=== PATIENT | female | born 1945 | race Caucasian/White ===

== ENCOUNTER 2024-01-11 09:56 | Inpatient (IN) | payer OTHER, SELFPAY ==
[2024-01-03 12:46] VITALS: BMI 21.5
[2024-01-03 13:58] LABS: Hematocrit 36.8 % (37.0-47.0); Hemoglobin 12.6 g/dL (12.0-16.0); Mean Corp Hgb Conc. 34.2 g/dL (33.0-37.0); Mean Corpuscular Hgb 29.6 pg (27.0-31.0); Mean Corpuscular Volume 86.4 fL (81.0-99.0); Mean Platelet Volume 9.2 fL (7.4-10.4); Platelet Count 421 10^3/uL (130-400); Red Blood Cell Count 4.26 10^6/uL (4.20-5.40); Red Cell Dist. Width 14.6 % (11.5-14.5); White Blood Cell Count 8.6 10^3/uL (4.8-10.8)
[2024-01-03 14:19] LABS: ALT (SGPT) 19 U/L (0-35); Albumin 4.7 g/dl (3.5-5.0); Alkaline Phosphatase 93 U/L (38-126); Blood Urea Nitrogen 42 mg/dl (7-17); Calcium 10.5 mg/dl (8.4-10.2); Carbon Dioxide 18 mmol/L (22-30); Estimated Creatinine Clearance 43 ml/min; Potassium 4.8 mmol/L (3.5-5.1); Sodium 138 mmol/L (135-145); Total Bilirubin 0.5 mg/dl (0.2-1.3); Total Protein 7.9 g/dl (6.3-8.2); eGFR > 60.00
[2024-01-03 14:21] LABS: AST (SGOT) 25 U/L (14-36); Glucose 99 mg/dl (70-99)
[2024-01-03 14:46] LABS: Chloride 109 mmol/L (98-107)
[2024-01-04 09:08] LABS: Glycohemoglobin (HgbA1c) 5.5 % (4.0-5.6)
[2024-01-04 10:22] VITALS: BMI 21.5
--- NOTE | 2024-01-06 10:39 | VNURNOTE ---
Extremely long discussion with patient over the phone, difficult to keep patient on track. Patient Ms Susanna explained she has a sister who can provide very limited help, she has vision problems. The patient intends on using a ride service to get
back home post op. She has a rolling walker, single point cane and sister will provide a raised toilet seat/commode. Home Health Liaison discussed VN nurse/therapy, visits, schedule and homebound status. Patient is planning on going to [facility]
outpatient PT. She has contacted them and is waiting for call back. VN remains available if discharge plans change. [facility]
--- NOTE | 2024-01-10 09:32 | VNURNOTE ---
Notified Maria at [facility] regarding pending [facility] out[facility] PT acceptance, requested Rx. She will forward to med team.
[2024-01-11] VITALS (12 sets, daily range): BP systolic 119–174; BP diastolic 60–88; PULSE 61–64; O2SAT 95–97; BMI 21.5
--- NOTE | 2024-01-11 08:20 | W.DS.TRANS ---
DC Summary - Purchasing Expeditor
-
Discharge Instructions:
Sleep Apnea Risk Low
Discharge Diagnosis/Procedures Allen Huertas 01/11/24
Diet As tolerated
Activity With Walker
Driving Restrictions No driving
Bathing Restrictions OK to Shower
Instructions:
Stand-Alone Forms:
Changes to Home Medications: Yes
Discharge Medications:
DC Medications w/original date entered in [facility]
Calcium Citrate + D 2 tab PO BID 01/03/24
alendronate 70 mg tablet 70 mg PO QWEEK 01/03/24
bimatoprost 0.01 % eye drops (Lumigan) 1 drp ophthalmic (eye) DAILY 01/03/24
multivitamin 1 tab PO DAILY 01/03/24
acetaminophen 500 mg tablet 1,000 mg (2 x 500 mg) PO QID #0 tabs 01/11/24
aspirin 325 mg tablet 325 mg PO DAILY blood clot prevention #1 tab 01/11/24
celecoxib 200 mg capsule 200 mg PO DAILY anti-inflammatory #14 caps 01/11/24
dexamethasone 4 mg tablet 4 mg PO BID inflammation #6 tabs 01/11/24
docusate sodium 100 mg capsule (Colace) 100 mg PO BID stool softner #1 cap 01/11/24
famotidine 10 mg tablet 10 mg PO HS GERD #0 tabs 01/11/24
magnesium hydroxide 400 mg/5 mL oral suspension (Milk of Magnesia) 30 ml PO HS PRN Constipation #1 mL 01/11/24
ondansetron 4 mg disintegrating tablet 4 mg PO Q6H PRN n/v #20 tabs 01/11/24
oxycodone 5 mg tablet 5 mg PO Q6H PRN 1 tab moderate pain, 2 tabs severe pain #30 tabs 01/11/24
sennosides 8.6 mg tablet (Senokot) 17.2 mg (2 x 8.6 mg) PO BID laxative #2 tabs 01/11/24
Home Medication Changes
aspirin 325 mg tablet 325 mg PO DAILY blood clot prevention #1 tab 01/11/24
celecoxib 200 mg capsule 200 mg PO DAILY anti-inflammatory #14 caps 01/11/24
dexamethasone 4 mg tablet 4 mg PO BID inflammation #6 tabs 01/11/24
docusate sodium 100 mg capsule (Colace) 100 mg PO BID stool softner #1 cap 01/11/24
famotidine 10 mg tablet 10 mg PO HS GERD #0 tabs 01/11/24
magnesium hydroxide 400 mg/5 mL oral suspension (Milk of Magnesia) 30 ml PO HS PRN Constipation #1 mL 01/11/24
ondansetron 4 mg disintegrating tablet 4 mg PO Q6H PRN n/v #20 tabs 01/11/24
oxycodone 5 mg tablet 5 mg PO Q6H PRN 1 tab moderate pain, 2 tabs severe pain #30 tabs 01/11/24
Pending Results: No
[2024-01-11] MEDS: CELEBREX 200 MG PO (10:50)
[2024-01-11] MEDS: NORMOSOL-R 1000 IV ×2 (10:50→14:36)
--- NOTE | 2024-01-11 14:18 | PTCARENOTE ---
Addendum.. Patient had a 12 beat run of VT on monitor. Denies any C/O, asymptomatic, VSS. Dr Johnsonyan aware. No further orders at this time. Will remain on the monitor
[2024-01-11] MEDS: ROXICODONE 5 MG PO (14:40)
--- NOTE | 2024-01-11 14:56 | PTCARENOTE ---
Addendum [place] text sent to Madison Umanzor regarding patient's 13 beat run VT( which the patient was symptomatic/VSS). She will follow up with the patient and further orders. Report was given to Delta CARDENAS who reassumed care of patient at 1425. [place]
text was sent to Dr Huertas as well.
--- NOTE | 2024-01-11 15:41 | PTCARENOTE ---
Pt arrived to [address] from PACU s/p L THR. Pt put on tele and EKG completed upon arrival to floor. Pt NV intact with mild sensation loss, IVF infusing. Pt states no pain at this time. Oriented to call esparza and room, bed locked and in lowest
position, call esparza within reach. Cardiology at bedside. Care ongoing.
--- NOTE | 2024-01-11 15:51 | CON.CAR ---
Addendum entered and electronically signed by Jose Nicole MD 01/11/24 16:56:
I saw and examined the patient.
The CARDIAC CARE NURSE's note was reviewed and I agree with the note.
78-year-old woman who is postop from left total hip arthroplasty today. In recovery patient noted to have brief episode of SVT as noted below. Patient was asymptomatic. No prior cardiac history. No palpitations or heart racing at home. ECG
currently shows sinus rhythm.
-Check labs including TSH, BMP and magnesium.
-Echocardiogram
-Monitor on telemetry.
-If patient has issues with recurrent SVT then would add low-dose beta-gilson.
Original Note:
Consultation
Consultation Request
Date/Time Consultation Requested: 01/11/24 1515
Date/Time Consultation Performed: 01/11/24 1530
Requesting Provider: Kelley Umanzor
Performing Provider: Marlene MORENO for Dr. Nicole
Reason for Consultation: arrhythmia
Medical History
-
Chief Complaint: hip surgery
History of Present Illness:
78 y/o female with left hip OA who is s/p left total hip arthroplasty. We are consulted due to arrhythmia noted on monitor. Telemetry reviewed and it was a brief (about 7 second run, at 160 BPM) of SVT. She was not symptomatic. Tele and EKG
currently SB in 50's. She denies any cardiac history and denies any CP, SOB, palpitations, or syncope.
Past Medical History
Past Medical History: Other (OA)
Social History
Tobacco: Non-Smoker
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
Family History
Family History: Reviewed & Not Pertinent
Allergies / Home Medications
Allergy/AdvReac Type Severity Reaction Status Date / Time
latex Allergy Unknown Verified 01/11/24 10:18
mustard Allergy Itching Verified 01/11/24 10:18
red meat Allergy Itching Uncoded 01/11/24 10:18
�Medication �Instructions �Recorded �Confirmed �Type
Calcium Citrate + D 2 tab PO BID 01/03/24 01/11/24 History
alendronate 70 mg tablet 70 mg PO QWEEK 01/03/24 01/11/24 History
bimatoprost 0.01 % eye drops 1 drp ophthalmic (eye) DAILY 01/03/24 01/11/24 History
(Lumigan)
multivitamin 1 tab PO DAILY 01/03/24 01/11/24 History
acetaminophen 500 mg tablet 1,000 mg (2 x 500 mg) PO QID #0 01/11/24 01/03/24 Rx
tabs
aspirin 325 mg tablet 325 mg PO DAILY blood clot 01/11/24 Rx
prevention #1 tab
celecoxib 200 mg capsule 200 mg PO DAILY anti-inflammatory 01/11/24 Rx
#14 caps
dexamethasone 4 mg tablet 4 mg PO BID inflammation #6 tabs 01/11/24 Rx
docusate sodium 100 mg capsule 100 mg PO BID stool softner #1 cap 01/11/24 Rx
(Colace)
famotidine 10 mg tablet 10 mg PO HS GERD #0 tabs 01/11/24 01/03/24 Rx
magnesium hydroxide 400 mg/5 mL 30 ml PO HS PRN Constipation #1 mL 01/11/24 Rx
oral suspension (Milk of Magnesia)
mupirocin 2 % topical ointment 1 applic topical BID 01/11/24 01/11/24 History
ondansetron 4 mg disintegrating 4 mg PO Q6H PRN n/v #20 tabs 01/11/24 Rx
tablet
oxycodone 5 mg tablet 5 mg PO Q6H PRN 1 tab moderate 01/11/24 Rx
pain, 2 tabs severe pain #30 tabs
sennosides 8.6 mg tablet (Senokot) 17.2 mg (2 x 8.6 mg) PO BID 01/11/24 Rx
laxative #2 tabs
Review of Systems
-
History Source: Patient
All other systems: Negative unless noted
Musculoskeletal: Other (hip pain with ambulating, prior to surgery)
Physical Exam
Vital Signs
Temp Pulse Resp BP Pulse Ox
98.3 F 79 16 139/81 98
01/11/24 15:44 01/11/24 15:44 01/11/24 15:44 01/11/24 15:44 01/11/24 15:44
Lab Results
01/03/24 12:40
01/03/24 12:40
Physical Exam
General: Well Developed, Well Nourished and No Apparent Distress
HEENT: Normocephalic and Anicteric
Respiratory: Clear and Non Labored Respirations
Cardiac: Regular Rhythm (SB)
Musculoskeletal: No Edema
Skin: Warm and Dry
Neuro: AO x 3
Psych: Calm
Impression / Plan
-
OA s/p left total hip arthroplasty, Dr. Huertas 01/11/24:
-VSS
-post-op pain control and DVT prophylaxis per ortho
pSVT:
-brief, asymptomatic
-follow telemetry
-check electrolytes, TSH
-check echo
-no medication or intervention required at this time
Data Reviewed
-
EKG: Tracing Personally Visualized and interpreted (SB 55 BPM)
Labs: Other (labs ordered by me)
[2024-01-11] MEDS: TYLENOL 650 MG PO ×2 (17:04→20:25)
[2024-01-11] MEDS: ASPIRIN 325 MG PO (17:04)
[2024-01-11 17:13] LABS: Blood Urea Nitrogen 27 mg/dl (7-17); Carbon Dioxide 18 mmol/L (22-30); Chloride 109 mmol/L (98-107); Estimated Creatinine Clearance 57 ml/min; Glucose 109 mg/dl (70-99); Magnesium 2.2 mg/dl (1.6-2.3); Potassium 4.4 mmol/L (3.5-5.1); Sodium 136 mmol/L (135-145); eGFR > 60.00
[2024-01-11 17:43] LABS: TSH Reflex To Free T4 0.99 uIU/ml (0.47-4.68)
[2024-01-11] MEDS: SENOKOT 17.2 MG PO (20:25)
[2024-01-11] MEDS: TORADOL 15 MG IV (20:25)
[2024-01-11] MEDS: COLACE 100 MG PO (20:25)
[2024-01-11] MEDS: ANCEF 5 IV (20:26)
[2024-01-11] MEDS: DECADRON 4 MG PO (20:26)
[2024-01-11] MEDS: BACTROBAN 2% OINTMENT 1 APPLIC NASAL (20:29)
[2024-01-11] MEDS: PEPCID 20 MG PO (20:44)
[2024-01-11] MEDS: NEURONTIN 300 MG PO (20:44)
--- NOTE | 2024-01-11 23:49 | PTCARENOTE ---
sinus james no svt so far- ax3- oob to chair and ambulated to bathroom with walker- dsg c/d/i
[2024-01-12] MEDS: TYLENOL PO (00:28)
--- NOTE | 2024-01-12 01:47 | PTCARENOTE ---
brief 6 second episode of svt 140's self contained followed by sinus pac's 70's- strips placed in chart. pt asymptomatic
[2024-01-12 03:00] VITALS: BP 143/80
[2024-01-12] MEDS: TYLENOL 650 MG PO ×3 (03:23→12:16)
[2024-01-12] MEDS: ANCEF 5 IV (03:23)
[2024-01-12] MEDS: FLUSH (NSS) 3 FLUSH IV (03:24)
[2024-01-12] MEDS: XALATAN OPHTHALMIC SOLUTION 1 DROP BOTH EYES (03:32)
--- NOTE | 2024-01-12 05:59 | PTCARENOTE ---
svt x 2 episodes this shift - both episodes were brief and pt asymptomatic. mostly sinus james with occasional pac's - vitals wnl- pt ambulates very well with walker- labs to be drawn this am
[2024-01-12 07:20] VITALS: BP 159/76
--- NOTE | 2024-01-12 07:35 | PTCARENOTE ---
Pt had brief 6 second episode of SVT to the 140s. HR down to sinus 70s following. Pt asymptomatic. Care ongoing.
--- NOTE | 2024-01-12 07:42 | W.PN.CD ---
Today's Communication / Plan
-
asymptomatic pSVT, no further w/u needed if echo normal
follow up with pcp and cardiology prn as an outpatient
if echo normal no further reccs and will sign off
Impression / Plan
-
OA s/p left total hip arthroplasty, Dr. Huertas 01/11/24:
-VSS
-post-op pain control and DVT prophylaxis per ortho
pSVT:
-brief, asymptomatic
-several episodes longest 15 seconds
- TSH normal
-check echo
-no medication or intervention required at this time
Elevated BP without a diagnosis of HTN:
-reports preop bp usually 120's.
-monitor at home
-given pSVT and HTN could consider low dose bb, we discussed possibly starting while inpatient, but we agree to just monitor.
Physical Exam
Vital Signs/Labs
Vital Signs
Temp Pulse Resp BP Pulse Ox
97.6 F 55 16 143/80 99
01/12/24 03:00 01/12/24 03:00 01/12/24 03:00 01/12/24 03:00 01/12/24 03:00
01/11/24 01/12/24 01/13/24
06:59 06:59 06:59
Actual Weight 47.899 kg
01/03/24 12:40
01/11/24 16:01
Magnesium 2.2 mg/dl (1.6-2.3) 01/11/24 16:01
Physical Exam
Constitutional: No acute distress
Cardiovascular: Rhythm & rate is regular, Pedal edema is absent, JVD pressure is normal, Systolic murmur absent and Diastolic murmur absent
Respiratory: Respiratory effort normal, Lungs clear to auscul., Wheeze Absent, Crackles Absent and Rhonchi Absent
Neuro/Psych: AO x 3
Data Reviewed
-
Date of Service: January 12, 2024
EKG: Other (tele sinus with sinus james, pSVT <15 seconds)
[2024-01-12] MEDS: BACTROBAN 2% OINTMENT 1 APPLIC NASAL (08:14)
[2024-01-12] MEDS: CELEBREX 200 MG PO (08:14)
[2024-01-12] MEDS: TORADOL 15 MG IV (08:14)
[2024-01-12] MEDS: ROXICODONE 5 MG PO ×2 (08:14→12:17)
[2024-01-12] MEDS: SENOKOT 17.2 MG PO (08:15)
[2024-01-12] MEDS: ASPIRIN 325 MG PO (08:15)
[2024-01-12] MEDS: DECADRON 4 MG PO (08:15)
[2024-01-12] MEDS: COLACE 100 MG PO (08:15)
[2024-01-12 09:51] VITALS: BP 137/72; PULSE 70; O2SAT 100
--- NOTE | 2024-01-12 10:00 | W.PN.ORTHO ---
Today's Communication / Plan
-
d/c
Assessment
.
Distal Motor Intact: Yes
Dressing:
Clean, dry and intact.
Plan
.
Surgery / Date: Allen Huertas 01/11/24
DVT Prophylaxis: Aspirin
Activity:
Out of bed.
PT/OT
Discharge Plan: Home w/ Outpatient PT
Subjective
.
.:
Patient resting comfortably.
Vital Signs and Labs
.
Vital Signs and Labs:
Lab Results
01/03/24 12:40
01/11/24 16:01
Temp Pulse Resp BP Pulse Ox
97.5 F 62 17 159/76 99
01/12/24 07:20 01/12/24 07:20 01/12/24 07:20 01/12/24 07:20 01/12/24 08:00
Non-invasive Hgb result: 11.5
Physical Exam
-
HEENT: No pallor, cyanosis, or jaundice. Throat clear.
NECK: Supple. No JVD.
RESPIRATORY: Lungs clear to auscultation.
CVS: S1, S2 normal. RRR.� No murmur, rub or gallop.
ABDOMEN: Soft, non-tender. No distension. BS+/normal.
EXTREMITIES: strength equal, no calf pain with palpation
PRINTING GREY CLOTH TENDER: AOx3. No focal deficits. contract agent grossly intact
[2024-01-12 10:57] VITALS: BP 146/71
--- NOTE | 2024-01-12 13:31 | CM ---
Met with patient at bedside; initial assessment completed; discharge planning discussed
signed IMM form on the chart 01/11/24; declined copy of form
Pharmacy verified: [facility] @ [address] [place] [address]
Patient reported she lives alone in 2 story home; 4 steps to enter; railing present on left; bathroom and bedroom on the 1st floor
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
SNF/Home Health utilization: none reported
DME: Cane, RW, Raised Toilet
Transportation: utilizes a private ride service
Asked for financial examiner resources; CM explained/demonstrated [employer] application via [employer] phone
Plan: discharge to home today; declined offer for home health services; plans on going to outpatient therapy
== END 2024-01-12 14:24 | disposition home or self-care (01) | DRG 470 ==
LOC: 2 SOUTH 09:56
PROVIDERS: Nurse Practitioner; ADMITTING PHYSICIAN Orthopaedic Surgery; CONSULT PHYSICIAN Internal Medicine Cardiovascular Disease; FAMILY PHYSICIAN Nurse Practitioner Gerontology
PROC: 0SRB039 Replacement of Left Hip Joint with Ceramic Synthetic Substitute, Cemented, Open Approach (ICD-10-PCS; 2024-01-11)
DX: M16.12 Unilateral primary osteoarthritis, left hip (principal); I10 Essential (primary) hypertension; M81.0 Age-related osteoporosis without current pathological fracture; R26.2 Difficulty in walking, not elsewhere classified; R94.31 Abnormal electrocardiogram [ECG] [EKG]; Z91.040 Latex allergy status; Z79.899 Other long term (current) drug therapy
CPT/HCPCS: 36415; 73502; 80048; 80053; 83036; 83735; 84443; 85027; 87070; 93005; 93306; 97110; 97116; 97162; 97166; 97530; 97535; C1713; C1776